=== PATIENT | male | born 1945 | race Caucasian/White ===

== ENCOUNTER → 2016-12-12 | Outpatient (CLI) | payer OTHER ==
[~2016-12-12] MED LIST: ASPIR 8181 MG PO; COREG3.125 MG PO; FISH OIL 1,001000 M2 PO; GLUCOSAMINE1000 MG PO; LASIX 40 MG TAB40 M2 PO; PRINIVIL20 MG PO; TRAVATAN Z2.5 ML OPHTHALMIC; XALATAN2.5 ML OPHTHALMIC
--- NOTE | ~2016-12-12 | 2DMMODE ---
[facility] [employer] [place] [address] 2 D/M-MODE ECHOCARDIOGRAM Name: [place]HUL [place] [facility] [place] #: REG CL [facility]#: [id number] Admission: 12/12/16 Attend Phys: Stan Bermeo MD Discharge: Date of : 41 Date of Service: 12/12/16 1059 Report #: [id number] THIS REPORT FOR: //name// APPROVED REPORT Study performed: 12/12/2016 09:54:45 EXAM: Comprehensive 2D, Doppler, and color-flow Echocardiogram Patient Location: Out-Patient Status: routine BSA: 2.19 HR: 53 bpm BP: 144/78 mmHg Rhythm: Irregular. Frequent PVCs Other Information Study Quality: Adequate Technically limited study due to body habitus, arrhythmia. Indications CAD Cardiomyopathy 2D Dimensions RVDd: 41.62 mm LVEF(%): 38.02 (>50%) IVSd: 13.19 (7-11mm) LVOT Diam: 22.43 (18-24mm) LVDd: 64.66 mm PWd: 11.73 (7-11mm) Ascending Ao: 35.38 (22-36mm) LVDs: 52.48 (25-40mm) Aortic Root: 35.07 mm Comer's LVEF: 38.02 % Volumes Left Atrial Volume (Systole) Single Plane 4CH: 77.42 mL Single Plane 2CH: 90.54 mL LA ESV Index: 43.00 mL/m2 Aortic Valve AoV Peak Jarod.: 1.53 m/s AO Peak Gr.: 9.38 mmHg LVOT Max P.23 mmHg LVOT Max V: 1.34 m/s CINDY Vmax: 3.47 cm2 [facility] [place] [place] [address] 2 D/M-MODE ECHOCARDIOGRAM Name: [place]HUL [place] [facility] [place] #: REG [facility]#: [id number] Admission: 12/12/16 Attend Phys: Stan Bermeo MD Discharge: Date of : 41 Date of Service: 12/12/16 1059 Report #: [id number] Mitral Valve E/A Ratio: 0.5 MV Decel. Time: 290.14 ms MV E Max Jarod.: 0.44 m/s MV A Jarod.: 0.84 m/s MV PHT: 84.14 ms IVRT: 119.95 ms Pulmonary Valve PV Peak Jarod.: 1.18 m/s PV Peak Gr.: 5.57 mmHg Pulmonary Vein P Vein S: 0.51 m/s P Vein A: 0.29 m/s P Vein D: 0.21 m/s P Vein A Dur.: 124.6 msec P Vein S/D Ratio: 2.43 Tricuspid Valve TR Peak Jarod.: 2.50 m/s RAP Estimate: 5.00 mmHg TR Peak Gr.: 25.04 mmHg PA Pressure: 30.00 mmHg Left Ventricle The left ventricle is normal size. Mild concentric left ventricular hypertrophy. Left ventricular systolic function is moderately decreased. LVEF is 40%. Mild diastolic dysfunction is present (impaired relaxation pattern). Right Ventricle The right ventricle is normal size. The right ventricular systolic function is normal. Atria Left atrium is dilated. The right atrium size is normal. Aortic Valve The aortic valve is normal in structure. No aortic regurgitation is present. There is no aortic valvular stenosis. Mitral Valve The mitral valve is normal in structure. Mild mitral regurgitation. Tricuspid Valve The tricuspid valve is normal in structure. There is trace tricuspid regurgitation. The right atrial pressure is estimated at 5 mmHg. There is borderline mild pulmonary hypertension with estimated PAP of [facility] [address] [place] [address] 2 D/M-MODE ECHOCARDIOGRAM Name: RAHUL [place] [facility] [place] #: REG CL [facility]#: [id number] Admission: 12/12/16 Attend Phys: Stan Bermeo MD Discharge: Date of : 41 Date of Service: 12/12/16 1059 Report #: [id number] 30mmHg. Pulmonic Valve The pulmonary valve is normal in structure. Trace pulmonic regurgitation. Great Vessels The aortic root is normal in size. The ascending aorta is normal in size. IVC is normal in size and collapses >50% with inspiration. Pericardium There is no pericardial effusion. <Conclusion> The left ventricle is normal size. Mild concentric left ventricular hypertrophy. Left ventricular systolic function is moderately decreased. LVEF is 40%. The right ventricle is normal size. Left atrium is dilated. There is no aortic valvular stenosis. Mild mitral regurgitation. There is trace tricuspid regurgitation. The right atrial pressure is estimated at 5 mmHg. There is borderline mild pulmonary hypertension with estimated PAP of 30mmHg. <ELECTRONICALLY SIGNED> By: Stan Bermeo MD 12/12/16 1059 1059 1059 Stan Bermeo MD /INF
== END ==
LOC: CV 09:35
DX: I25.10 Atherosclerotic heart disease of native coronary artery without angina pectoris (principal); I42.9 Cardiomyopathy, unspecified; I34.0 Nonrheumatic mitral (valve) insufficiency

== ENCOUNTER → 2018-01-12 | Outpatient (CLI) | payer OTHER | LOC: RAD 10:46 | DX: J98.4 Other disorders of lung (principal); I77.810 Thoracic aortic ectasia; M25.78 Osteophyte, vertebrae; I50.9 Heart failure, unspecified; G47.30 Sleep apnea, unspecified; Z87.891 Personal history of nicotine dependence ==

== ENCOUNTER → 2018-02-16 | Outpatient (CLI) | payer OTHER ==
--- NOTE | ~2018-02-16 | 2DMMODE ---
[facility] [place] [address] 2 D/M-MODE ECHOCARDIOGRAM Name[place] [facility] #: REG CL [facility]#: [id number] Admission: 02/16/18 Attend Phys: Stan Bermeo MD Discharge: Date of : 41 Date of Service: 02/16/18 1346 Report #: [id number] THIS REPORT FOR: //name// APPROVED REPORT Study performed: 02/16/2018 12:50:13 EXAM: Comprehensive 2D, Doppler, and color-flow Echocardiogram Patient Location: Out-Patient Room #: Echo lab 2 Status: routine BSA: 2.27 HR: 57 bpm BP: 142/76 mmHg Rhythm: NSR Other Information Study Quality: Fair Indications CAD Hypertension/HDD 2D Dimensions RVDd: 39.79 mm IVSd: 13.76 (7-11mm) LVOT Diam: 22.29 (18-24mm) LVDd: 54.37 mm PWd: 12.80 (7-11mm) Ascending Ao: 33.28 (22-36mm) LVDs: 42.10 (25-40mm) Aortic Root: 33.29 mm IVC: 16.00 mm Volumes Left Atrial Volume (Systole) Single Plane 4CH: 79.85 mL Single Plane 2CH: 80.87 mL LA ESV Index: 42.00 mL/m2 Aortic Valve AoV Peak Jarod.: 1.28 m/s AO Peak Gr.: 6.51 mmHg LVOT Max P.36 mmHg LVOT Max V: 0.92 m/s CINDY Vmax: 2.80 cm2 Pulmonary Valve PV Peak Jarod.: 1.18 m/s PV Peak Gr.: 5.62 mmHg [facility] [address] [place] [address] 2 D/M-MODE ECHOCARDIOGRAM Name: RAHUL DE OLIVEIRA [facility] Room #: REG ON [facility]#: [id number] Admission: 02/16/18 Attend Phys: Stan Bermeo MD Discharge: Date of : 41 Date of Service: 02/16/18 1346 Report #: [id number] Left Ventricle The left ventricle is normal size. Mild concentric left ventricular hypertrophy. Left ventricular systolic function is mild to moderately decreased. LVEF is 40-45%. This study is not technically sufficient to allow evaluation of the LV diastolic function. Right Ventricle The right ventricle is normal size. The right ventricular systolic function is normal. Atria Left atrium is dilated. Right atrium is at the upper limits of normal. Aortic Valve The aortic valve is normal in structure. No aortic regurgitation is present. There is no aortic valvular stenosis. Mitral Valve The mitral valve is normal in structure. Trace to mild mitral regurgitation. No evidence of mitral valve stenosis. Tricuspid Valve The tricuspid valve is normal in structure. There is trace tricuspid regurgitation. Estimated PAP 29 mmHg. There is no pulmonary hypertension. Pulmonic Valve The pulmonary valve is normal in structure. There is no pulmonic valvular regurgitation. Great Vessels The aortic root is normal in size. IVC is normal in size and collapses >50% with inspiration. Pericardium There is no pericardial effusion. <Conclusion> The left ventricle is normal size. Mild concentric left ventricular hypertrophy. Left ventricular systolic function is mild to moderately decreased. The right ventricle is normal size. Left atrium is dilated. There is no aortic valvular stenosis. [facility] [address] [place] [address] 2 D/M-MODE ECHOCARDIOGRAM Name: AKUA DE [place]AALD [facility] #: REG [facility]#: [id number] Admission: 02/16/18 Attend Phys: Stan Bermeo MD Discharge: Date of : 41 Date of Service: 02/16/181345 Report #: [id number] Trace to mild mitral regurgitation. There is trace tricuspid regurgitation. Estimated PAP 29 mmHg. <ELECTRONICALLY SIGNED> By: Stan Bermeo MD 02/16/181345 45 45 Stan Bermeo MD /INF
== END ==
LOC: CV 08:21
DX: I51.7 Cardiomegaly (principal); I25.10 Atherosclerotic heart disease of native coronary artery without angina pectoris

== ENCOUNTER → 2019-08-16 | Outpatient (CLI) | payer MEDICARE | LOC: SJCVCIMAG 08:01 | DX: I11.9 Hypertensive heart disease without heart failure (principal); R94.31 Abnormal electrocardiogram [ECG] [EKG]; I48.0 Paroxysmal atrial fibrillation; I44.7 Left bundle-branch block, unspecified; I25.10 Atherosclerotic heart disease of native coronary artery without angina pectoris; E78.00 Pure hypercholesterolemia, unspecified; Z79.82 Long term (current) use of aspirin; Z79.899 Other long term (current) drug therapy; Z82.49 Family history of ischemic heart disease and other diseases of the circulatory system; Z87.891 Personal history of nicotine dependence ==

== ENCOUNTER → 2019-08-23 | Outpatient (CLI) | payer OTHER | LOC: SJCVCIMAG 11:06 | DX: I44.7 Left bundle-branch block, unspecified (principal); I44.0 Atrioventricular block, first degree; I42.9 Cardiomyopathy, unspecified; I10 Essential (primary) hypertension; E78.00 Pure hypercholesterolemia, unspecified; G47.33 Obstructive sleep apnea (adult) (pediatric); I25.10 Atherosclerotic heart disease of native coronary artery without angina pectoris; Z99.89 Dependence on other enabling machines and devices; Z79.82 Long term (current) use of aspirin; Z79.899 Other long term (current) drug therapy; Z82.49 Family history of ischemic heart disease and other diseases of the circulatory system; Z87.891 Personal history of nicotine dependence ==

== ENCOUNTER 2019-08-30 06:40 | Observation (INO) | payer OTHER ==
[~2019-08-30] VITALS: Ht 177.8 cm; Wt 121.1 kg
[2019-08-30 07:29] VITALS: BP 125/65
[2019-08-30] MEDS ORDERED: LIPITOR10 MG PO (07:39)
[2019-08-30] MEDS ORDERED: ENTRESTO 24 MG1 EACH PO (07:40)
[2019-08-30] MEDS ORDERED: GLUCOSAMINE &1 EAC1 PO (07:42)
[2019-08-30] MEDS ORDERED: SUPER THERAVIT1 EACH PO (07:43)
--- NOTE | 2019-08-30 08:50 | EKG ---
[facility] [place] [address] ELECTROCARDIOGRAM REPORT Name: RAHUL DE OLIVEIRA Room #: REG [facility]#: [id number] Admission: 08/30/19 Attend Phys: Stan Bermeo MD Discharge: Date of : 41 Report #: [id number] THIS REPORT FOR: cc: Chris Mcgill MD, David A. MD Lundgren,Marco Pritchett MD [facility] THIS REPORT FOR: //name// [facility] Test Date: 2019-08-30 Test Time: 07:56:13 Pat Name: RAHUL DE OLIVEIRA Department: Room: Gender: Senior Instructor: [place] : 1945 Requested By: Stan Bermeo Order Number: [id number] MD: Marco Tavarez Measurements Intervals [place] Rate: 52 P: 47 NH: 282 QRS: -2 QRSD: 193 T: 178 QT: 510 QTc: 475 Interpretive Statements Sinus rhythm Prolonged [place] interval Left bundle branch block Compared to ECG 06/01/2016 11:56:48 No significant change was found Electronically Signed On 08-30-2019 8:48:20 CDT by Marco Tavarez [email or web address] <ELECTRONICALLY SIGNED> By: Marco Tavarez MD, [facility] 08/30/19 0848 0756 0756 Marco Tavarez MD, [facility] /EPI
--- NOTE | 2019-08-30 15:09 | CATHLAB ---
[facility] [place] [address] INVASIVE PROCEDURE REPORT Name: RAHUL DE OLIVEIRA Room #: REG [facility].#: [id number] Admission: 08/30/19 Attend Phys: Stan Bermeo MD Discharge: Date of : 41 Report #: [id number] THIS REPORT FOR: cc: Chris Mcgill MD, David A. MD Park, Jin S. MD ~ APPROVED REPORT Study performed: 08/30/2019 09:24:19 Patient Details Patient Status: Out-Patient Room #: The patient is a 73 year-old male Event Personnel Stan Bermeo Coil Repair Technician, Stefanie Lopez RTR, CHARHOUSE WORKER Monitor, Arianna Nelson Penny, Wes RN, SIENNA WAY RN product sales engineer Performed Art Access - R femoral artery* Left Heart Cath w/or w/o Coronaries [id number] [facility] RYAN Place w/wo Plasty Single LAD 252485 51591 Initial Mod Sed Same Phys/QHP Gr5y 311875 75483 Mod Sed Same Phys/QHP Ea 245031 Hemostasis w/ Mynx Indication Dyspnea, Unstable angina , CardiomyopathyPositive stress test, Chest pain Risk Factors Hypercholesterolemia, Coronary Artery DiseaseHypertension Procedure Narrative The Right Groin^ was infiltrated with 1% Lidocaine subcutaneous anesthesia. A PINNACLE 4FR Sheath #[id number] sheath was inserted into the RFA^. Coronary angiography was performed using coronary diagnostic catheters. The right coronary system was accessed and visualized with a JR4 catheter. The left coronary system was accessed and visualized with a JL4 catheter. The left ventricle was accessed and visualized with a angled pigtail catheter. Left ventricular/Aortic Valve gradient assessed via catheter pullback. Left ventriculogram was performed in 30 degree projection. Closure device was deployed with a 6 Fr MYNXGRIP 6/7F #[id number]. The patient tolerated the procedure well and there were no complications [address] [address] INVASIVE PROCEDURE REPORT Name: [facility] [place] Room #: REG [facility]#: [id number] Admission: 08/30/19 Attend Phys: Stan Bermeo MD Discharge: Date of : 41 Report #: [id number] associated with the procedure. There was no hematoma. Intraoperative Conscious Sedation Sedation start time: 10:00 Case end Time: 11:07 Fentanyl 50 mcg Versed 1.5 mg Fluoro Time: 13.24 minutes Dose: DAP 09350.30 cGycm2 2587 mGy Contrast Type and Amount: Omnipaque 295 ml Coronary Angiography The patient's coronary anatomy is right dominant. Diagnostic Cath Left Main The left main artery is a large-caliber vessel with minimal plaquing in the distal segment. LAD The proximal LAD is calcified with mild disease at the ostium. There is a severe stenosis in the midsegment, 80%. Diagonal 1 The diagonal artery is a patent vessel, with no flow-limiting lesions. Diagonal 2 This is a patent vessel, with no flow-limiting lesions. Circumflex The proximal segment is mildly calcified with an ostial stenosis of 20%. OM1 This is a moderate-sized caliber vessel, patent with no flow-limiting lesions. OM2 This is a small caliber vessel, patent with no flow-limiting lesions. Right Coronary There is a mild to moderate ostial stenosis with calcification, 30 to 40%. R PDA This is a moderate-sized caliber vessel, patent with no flow-limiting lesions. RPLV This is a moderate-sized caliber vessel, patent with no flow-limiting lesions. Left Ventriculography The left ventricle is normal in size with decreased contractility. The left ventricular ejection fraction is estimated to be 35-40%. Left ventricular wall motion abnormalities are present. There is hypokinesis of the anterolateral and apical segments. Hemodynamics The aortic pressure is 143/77 mmHg with a mean of 99 mmHg. The left ventricular pressure is 128/14 mmHg with a mean of mmHg. [facility] [address] [place] [address] INVASIVE PROCEDURE REPORT Name: RAHUL DE OLIVEIRA [facility] [place] Room #: REG [facility].#: [id number] Admission: 08/30/19 Attend Phys: Stan Bermeo MD Discharge: Date of : 41 Report #: [id number] ventricular end diastolic pressure is 19 mmHg. PCI Technique Lesion Percutaneous coronary intervention was performed on the mid left anterior descending artery segment. The lesion stenosis prior to intervention was 80% with DAPHNE 3 flow. A VISTA 6FR XB 3.5 #[id number] Guide Catheter was used to engage the ostium. A Luge Wire .014 x 182CM #[id number] Interventional Guidewire was used to cross the lesion. BALLOON DILATION A Balloon catheter Euphora RX 2.5 x 12 #[id number] was inserted and inflated up to 8.00atm for 17seconds. STENT DEPLOYMENT A drug-eluting stent RESOLUTE DANIELA RX 2.5 X 15 #[id number] was inserted and inflated up to 12.00atm for 14seconds. A drug-eluting stent RESOLUTE DANIELA RX 2.5 X 12 was deployed proximal to 2.5 x 15 Resolute Daniela RYAN and inflated up to 14 octavio for 15 seconds. POST STENT DEPLOYMENT BALLOON DILATION A Balloon catheter TREK NC RX 2.75 X 12 #[id number] was inserted and inflated up to 18.00atm for 14seconds. Additional Inflation: 18.00atm for 13seconds. Additional Inflation: 18.00atm for 17seconds. Final angiography reveals 0 % stenosis with DAPHNE 3 flow. Conclusion 1. Successful insertion of drug-eluting stents into the mid LAD stenosis. 2. Mild to moderate disease in the RCA. 3. Moderate segmental LV dysfunction. 4. Recommend dual antiplatelet therapy and aggressive risk factor management. <ELECTRONICALLY SIGNED> By: Stan Bermeo MD 08/30/19 1507 1507 1507 Stan Bermeo MD /INF
[2019-08-30 15:20] VITALS: BP 114/73
[2019-08-30 16:54] VITALS: BP 116/65
[2019-08-30 17:15] VITALS: BP 131/66
--- NOTE | 2019-08-30 17:27 | NUR ---
ASSUMMED PT CARE AT APPROXIMATELY 1520. PT A&O X4. ASSESSMENT CHARTED. ADMISSION COMPLETE. FALL PRECAUTIONS IN PLACE. PT DENIES HAVING CHEST PAIN. PT DENIES HAVING SOB. PT STATED HE HAD MINIMAL PAIN AT R GROIN SITE. PT DENIED WANTING ANALGESICS. VITAL SIGNS STABLE. R GROIN C/D/I. NO HEMATOMA. PT OFF BED REST WHEN ARRIVED TO UNIT PER ADVERTISING VICE PRESIDENT RN. PT AMBULATES STEADY/INDEPENDENTLY. PT COMFORTABLE IN BED. PT DENIES HAVING FURTHER CONCERNS.
[2019-08-30 20:25] VITALS: BP 102/64
[2019-08-31 00:18] VITALS: BP 121/61
--- NOTE | 2019-08-31 01:25 | NUR ---
A/O X 4.DENIES PAIN AND SOB.RIGHT GROIN DRESSING C/D/I.NO HEMATOMA NOR BLEEDING NOTED.UP INDEPENDENTLY.VOIDED.MONITOR SHOWS SR,SB.POC CONTINUED.
[2019-08-31 05:23] VITALS: BP 123/65
[2019-08-31 06:06] LABS: HEMATOCRIT 41.3 % (42.0-52.0); HEMOGLOBIN 14.1 gm/dL (14.0-18.0); MCH 33.6 pg (26.0-34.0); MCV 98.8 fL (80.0-100.0); RBC 4.18 mil/uL (4.50-6.00); RDW 13.3 % (10.5-14.5); WBC 7.6 thou/uL (4.0-11.0)
[2019-08-31 06:47] LABS: ALBUMIN 3.4 g/dL (3.4-5.0); CALCIUM 8.1 mg/dL (8.5-10.1); CREATININE 1.1 mg/dL (0.7-1.3); POTASSIUM 3.9 mmol/L (3.5-5.1); TOTAL BILIRUBIN 0.5 mg/dL (<0.1-1.0); TOTAL PROTEIN 6.5 g/dL (6.4-8.2)
[2019-08-31 07:37] VITALS: BP 125/73
--- NOTE | 2019-08-31 08:00 | EKG ---
[facility] [place] [address] ELECTROCARDIOGRAM REPORT Name: RAHUL DE OLIVEIRA Room #: 213-[facility] M.R.#: [id number] Admission: 08/30/19 Attend Phys: Stan Bermeo MD Discharge: Date of : 41 Report #: [id number] THIS REPORT FOR: cc: Chris Mcgill MD, David A. MD Lundgren,Marco Pritchett MD [facility] ~ THIS REPORT FOR: //name// [facility] Test Date: 2019-08-30 Test Time: 11:49:27 Pat Name: RAHUL DE OLIVEIRA Department: Room: [facility] Gender: M Desktop Support Engineer: LISA : 1945 Requested By: Stan Bermeo Order Number: [id number] MD: Marco Tavarez Measurements Intervals [place] Rate: 58 P: 62 WA: 287 QRS: 1 QRSD: 190 T: 176 QT: 500 QTc: 492 Interpretive Statements Sinus rhythm Atrial premature complex Prolonged WA interval Left bundle branch block Compared to ECG 08/30/2019 07:56:13 Atrial premature complex(es) now present Electronically Signed On 08-31-2019 7:59:12 CDT by Marco Tavarez [email or web address] <ELECTRONICALLY SIGNED> By: Marco Tavarez MD, [facility] 08/31/19 0759 1149 1149 Marco Tavarez MD, [facility] /EPI
--- NOTE | 2019-08-31 08:12 | EKG ---
[facility] [place] [address] ELECTROCARDIOGRAM REPORT Name: RAHUL DE OLIVEIRA Room #: 213-[facility] M.R.#: [id number] Admission: 08/30/19 Attend Phys: Stan Bermeo MD Discharge: Date of : 41 Report #: [id number] THIS REPORT FOR: cc: Chris Mcgill MD, David A. 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1945 Requested By: Stan Bermeo Order Number: [id number] MD: Marco Tavarez Measurements Intervals [place] Rate: 57 P: 32 MD: 271 QRS: 7 QRSD: 195 T: 174 QT: 531 QTc: 517 Interpretive Statements Sinus rhythm Prolonged MD interval Left bundle branch block Baseline wander in lead(s) V2 Compared to ECG 08/30/2019 07:56:13 No significant changes Electronically Signed On 08-31-2019 8:10:55 CDT by Marco Tavarez [email or web address] <ELECTRONICALLY SIGNED> By: Marco Tavarez MD, [facility] 08/31/19 0810 0756 0756 Marco Tavarez MD, [facility] /EPI
[2019-08-31] MEDS ORDERED: CLOPIDOGREL75 MG PO (08:48)
[2019-08-31 09:20] VITALS: BP 125/73
[2019-08-31 10:33] VITALS: BP 125/73
--- NOTE | 2019-08-31 11:45 | NUR ---
DISCHRGING TO HOME. CARDIAC NURSE HAS SEEN, TAUGHT, AND AMBULATED. DISCHARGE INSTRUCTIONS GIVEN.
== END 2019-08-31 12:34 | disposition home or self-care (01) ==
LOC: CATH 06:40 → 2N 16:11
PROVIDERS: ADMIT Internal Medicine Cardiovascular Disease
DX: I25.110 Atherosclerotic heart disease of native coronary artery with unstable angina pectoris (principal); I42.9 Cardiomyopathy, unspecified; R94.39 Abnormal result of other cardiovascular function study

== ENCOUNTER → 2019-09-15 | Outpatient (CLI) | payer OTHER ==
[~2019-09-15] MED LIST changes: +CLOPIDOGREL75 MG PO; +ENTRESTO 24 MG1 EACH PO; +GLUCOSAMINE &1 EAC1 PO; +LIPITOR10 MG PO; +SUPER THERAVIT1 EACH PO
== END ==
LOC: SJCVC 13:16
DX: R94.31 Abnormal electrocardiogram [ECG] [EKG] (principal); I44.0 Atrioventricular block, first degree; I44.7 Left bundle-branch block, unspecified; I49.3 Ventricular premature depolarization; I25.10 Atherosclerotic heart disease of native coronary artery without angina pectoris; I42.9 Cardiomyopathy, unspecified; E78.00 Pure hypercholesterolemia, unspecified; I10 Essential (primary) hypertension; G47.33 Obstructive sleep apnea (adult) (pediatric); Z79.899 Other long term (current) drug therapy; Z87.891 Personal history of nicotine dependence

== ENCOUNTER → 2020-03-07 | Outpatient (CLI) | payer OTHER | LOC: SJCVC 14:07 | PROVIDERS: ATTEND Internal Medicine Cardiovascular Disease | DX: I44.7 Left bundle-branch block, unspecified (principal); R94.31 Abnormal electrocardiogram [ECG] [EKG]; R00.0 Tachycardia, unspecified; I44.0 Atrioventricular block, first degree; I49.8 Other specified cardiac arrhythmias; I25.10 Atherosclerotic heart disease of native coronary artery without angina pectoris; I42.9 Cardiomyopathy, unspecified; E78.00 Pure hypercholesterolemia, unspecified; I10 Essential (primary) hypertension; G47.33 Obstructive sleep apnea (adult) (pediatric); Z99.89 Dependence on other enabling machines and devices ==

== ENCOUNTER → 2020-09-13 | Outpatient (CLI) | payer MEDICARE | LOC: SJCVC 10:31 | PROVIDERS: ATTEND Internal Medicine Cardiovascular Disease | DX: R94.31 Abnormal electrocardiogram [ECG] [EKG] (principal); I44.7 Left bundle-branch block, unspecified; I49.1 Atrial premature depolarization; I44.0 Atrioventricular block, first degree; I42.9 Cardiomyopathy, unspecified; I25.10 Atherosclerotic heart disease of native coronary artery without angina pectoris; I10 Essential (primary) hypertension; E78.00 Pure hypercholesterolemia, unspecified; G47.33 Obstructive sleep apnea (adult) (pediatric); Z95.5 Presence of coronary angioplasty implant and graft; Z79.82 Long term (current) use of aspirin; Z79.899 Other long term (current) drug therapy; Z87.891 Personal history of nicotine dependence; Z82.49 Family history of ischemic heart disease and other diseases of the circulatory system ==

== ENCOUNTER → 2021-03-19 | Outpatient (CLI) | payer MEDICARE | LOC: SJCVC 10:29 | PROVIDERS: ATTEND Internal Medicine Cardiovascular Disease | DX: R94.31 Abnormal electrocardiogram [ECG] [EKG] (principal); I44.7 Left bundle-branch block, unspecified; I44.0 Atrioventricular block, first degree; I25.10 Atherosclerotic heart disease of native coronary artery without angina pectoris; I10 Essential (primary) hypertension; I42.9 Cardiomyopathy, unspecified; E78.00 Pure hypercholesterolemia, unspecified; G47.33 Obstructive sleep apnea (adult) (pediatric); R60.0 Localized edema; Z82.49 Family history of ischemic heart disease and other diseases of the circulatory system; Z95.5 Presence of coronary angioplasty implant and graft; Z79.82 Long term (current) use of aspirin; Z79.899 Other long term (current) drug therapy; Z87.891 Personal history of nicotine dependence ==